=== PATIENT | male | born 1975 | race Two or more races ===

== ENCOUNTER 2024-11-26 12:46 | Emergency (ER) | payer MEDICAID, SELFPAY ==
[2024-11-26 13:25] VITALS: BP 130/70; PULSE 80; RESP 18; TEMP 36.6; O2SAT 100; BMI 27.3
--- NOTE | 2024-11-26 13:28 | XR_ITS ---
Examination: PA lateral chest 2 views TECHNIQUE: Upright PA lateral chest 2 views Exam date and time: November 26, 2024 1335 hours INDICATIONS: Back pain today. FINDINGS: Normal heart size No pneumonia or pulmonary edema The osseous structures are intact IMPRESSION: No active disease
--- NOTE | 2024-11-26 13:28 | XR_ITS ---
Examination: Thoracic spine 3 views Technique one AP lateral coned lateral upper dorsal spine 3 views indications: Back pain this week. FINDINGS: Thoracic dextroscoliosis 13 degrees Adequate bone density No thoracic fracture Mild diffuse thoracic disc narrowing IMPRESSION: Thoracic dextroscoliosis 13 degrees Mild diffuse thoracic degenerative disc disease
--- NOTE | 2024-11-26 13:29 | EDNOTE_ITS ---
<Statement entered by Josseline Acosta MD - 11/27/24 07:26> As co-signing physician, I was present and available for consult prn. I concur with the plan and care as documented by the midlevel provider. ED Chest Pain RME/HPI General Chief Complaint: Chest Pain Stated Complaint: BACK PAIN RAD TO CHEST, [place] Time Seen by Provider: 11/26/24 13:30 Source: patient Arrival date/time: 11/26/24 12:46 48-year-old male with no known medical history presents to the emergency room with a chief complaint of back pain that radiates to the left rib area x 15 days. Patient states the pain is intermittent and begins in the thoracic area of his spine. Mode of arrival: ambulatory Limitations: no limitations Related Data Allergies Allergy/AdvReac Type Severity Reaction Status Date / Time No Known Allergies Allergy Verified 11/26/24 12:50 Review of Systems Review of Systems Systems Reviewed: All systems reviewed, normal except as documented Constitutional Constitutional: Reports system reviewed and no additional complaints, except as documented, Denies fatigue, Denies fever(s), Denies headache(s) and Denies weakness Eyes Eyes: Reports system reviewed and no additional complaints, except as documented, Denies blurry vision and Denies change in vision ENT Ears, Nose, Mouth, and Throat: Reports system reviewed and no additional complaints, except as documented, Denies otalgia, Denies headache(s), Denies nasal congestion, Denies throat swelling and Denies vertigo Cardiovascular Cardiovascular: Reports system reviewed and no additional complaints, except as documented, Denies chest pain, Denies dyspnea and Denies dyspnea on exertion Respiratory Respiratory: Reports system reviewed and no additional complaints, except as documented, Denies chest congestion, Denies cough, Denies dyspnea, Denies dyspnea on exertion and Denies wheezing Gastrointestinal Gastrointestinal: Reports system reviewed and no additional complaints, except as documented, Denies abdominal pain, Denies cramping, Denies nausea and Denies vomiting Genitourinary Genitourinary: Reports system reviewed and no additional complaints, except as documented, Denies dysuria and Denies hematuria Musculoskeletal Musculoskeletal: Reports system reviewed and no additional complaints, except as documented, Reports arthralgias, Reports back pain and Denies limited range of motion Integumentary/Breasts Skin/Breast: Reports system reviewed and no additional complaints, except as documented and Denies wounds Neurologic Neurologic: Reports system reviewed and no additional complaints, except as documented, Denies confusion, Denies headache(s), Denies lack of coordination, Denies vertigo and Denies weakness Psychiatric Psychiatric: Reports system reviewed and no additional complaints, except as documented, Denies anxiety, Denies confusion, Denies depression, Denies paranoia, Denies suicidal ideation and Denies tactile hallucinations Endocrine Endocrine: Reports system reviewed and no additional complaints, except as documented and Denies fatigue Hematologic/Lymphatic Hematologic/Lymphatic: Reports system reviewed and no additional complaints, except as documented and Denies lymphadenopathy Allergic/Immunologic Allergic/Immunologic: Reports system reviewed and no additional complaints, except as documented, Denies throat swelling, Denies urticaria and Denies wheezing Past Medical History Social History SMOKING STATUS: Never smoker ED Exam General Limitations: Present no limitations General appearance: Present alert and in no apparent distress Head Head exam: Present atraumatic Eye Eye exam: Present normal appearance, PERRL and EOMI ENT ENT exam: Present normal exam, normal oropharynx and mucous membranes moist Neck Neck exam: Present normal inspection, full ROM and trachea midline Chest Chest inspection: Present normal inspection and symmetric chest wall rise Respiratory Respiratory exam: Present normal lung sounds bilaterally Cardiovascular Cardiovascular exam: Present regular rate, normal rhythm and normal heart sounds Abdominal Exam Abdominal exam: Present soft and normal bowel sounds Extremities Exam Extremities exam: Present normal inspection and full ROM Back Exam Back exam: Present normal inspection, full ROM and vertebral tenderness Back 1 view image: 2 1. Tenderness and pain with palpation to the thoracic area of the spine Neurological Exam Neurological exam: Present alert, oriented X3 and CN II-XII intact Psychiatric Psychiatric exam: Present normal affect and normal mood Skin Skin exam: Present warm, dry, intact and normal color Course Quality Measures none Orders Category Date Time Status XR chest 2V Stat Exams 11/26/24 13:28 Completed XR thoracic spine 3V Stat Exams 11/26/24 13:28 Completed Vital Signs Vital signs: Vital Signs Temperature 98 F 11/26/24 13:25 Pulse Rate 80 11/26/24 13:25 Respiratory Rate 18 11/26/24 13:25 Blood Pressure 130/70 11/26/24 13:25 Pulse Oximetry (%) 100 11/26/24 13:25 Oxygen Delivery Method Room Air 11/26/24 13:25 O2 saturation 100% within normal limits Chest Pain MDM Narrative MDM Narrative:: 48-year-old male with no known medical history presents to the emergency room with a chief complaint of back pain that radiates to the left rib area x 15 days. Patient states the pain is intermittent and begins in the thoracic area of his spine. Patient is hemodynamically stable and in no apparent distress. Patient has tenderness with palpation to the thoracic area of the spine as well as to the left rib area. This pain has been going on for the last 15 days and patient states this is intermittent pain that he has been dealing with for years. X-ray of the thoracic spine was completed and shows degenerative disc disease as well as scoliosis. Patient was educated to follow-up with his primary care provider and return to the emergency room for any evidence of worsening signs or symptoms Patient data External records reviewed:: [facility] previous records Clinical information provided by:: patient Social determinants that could affect healthcare access:: none Patient has the following chronic illnesses:: No chronic illness How is presenting disease/condition affected by chronic disease/condition?: no chronic disease Evaluation data The following diagnostics were reviewed and interpreted by me:: lab results and radiology exam(s) Lab and/or radiology exams considered but not ordered:: Labs and radiology exams considered and ordered Interpretation Summary: Thoracic spine [id number]: Thoracic dextroscoliosis 13 degrees Adequate bone density No thoracic fracture Mild diffuse thoracic disc narrowing IMPRESSION: Thoracic dextroscoliosis 13 degrees Mild diffuse thoracic degenerative disc disease Medications / Prescriptions Medications or Prescriptions considered but not ordered:: Medication not given Medication administrations:: Medication not given Consultations Consultation(s) initiated? (list below): No Diagnosis Chest Pain Differential Diagnosis: other (Scoliosis/degenerative disc disease) Most likely diagnosis given after review of the tests above:: Degenerative disc disease Admission Indicated Admission indicated?: not indicated Admission Request Was there a request for admission?: No Disposition Plan Disposition Plan: Discharge Discharge Attestation Discharge Attestation: The patient and all family members were given an opportunity to ask questions and understood the discharge instructions. Discharge instructions specifically effects, indications for sooner follow up or return to the emergency department, and the expected course of current diagnosis. Patient condition: Stable Discharge Plan Plan Patient Disposition: HOME (Self Care) Prescriptions/Referrals Referrals: No Primary/Family,Physician [Primary Care Provider] - In 1 week Problem List Clinical Impression: Degenerative disc disease, Scoliosis Patient/Caregiver Discharge Instructions Education Materials: Understanding Scoliosis, Anatomy of a Normal Spine Additional Instructions: Please follow-up with your primary care provider in the next 24 to 48 hours. The x-ray of your spine was completed and found degenerative disc disease which is degeneration of the cushion in between your vertebrae. Please follow-up with your primary care provider and return to the emergency room for any evidence of worsening signs or symptoms Print Language: Khmer Stand Alone Forms: Raquel Award Info., Patient Portal Info Letter PA/VENDING SUPERVISOR Supervising Physician PA/FRANNY Supervising Physician: Dr. ACOSTA
== END 2024-11-26 16:56 | disposition home or self-care (01) ==
PROVIDERS: Emergency Provider Emergency Medicine
DX: M51.34 Other intervertebral disc degeneration, thoracic region (principal); M41.9 Scoliosis, unspecified
CPT/HCPCS: 71046; 72072; 99283